=== PATIENT | female | born 1955 | race Native Hawaiian/Other Pacific Islander ===

== ENCOUNTER 2016-11-29 23:58 | Inpatient (IN) | payer OTHER ==
[~2016-11-29] VITALS: Ht 167.6 cm; Wt 53.2 kg
[2016-11-30] MEDS ORDERED: ONDANSETRON HCL/PF 4 MG/2 ML VIAL ONE (00:03)
[2016-11-30] MEDS ORDERED: IV NS 0.9% 1,000 ML ONE (00:03)
[2016-11-30] MEDS ORDERED: IV SET PRIMARY 1 EA INFUS.SET MC ONE (00:03)
[2016-11-30 00:23] LABS: BASOPHILS % (AUTO) 0.2 % (0.0-2.0); EOSINOPHILS # (AUTO) 0.2 /CMM (0.0-0.7); EOSINOPHILS % (AUTO) 2.8 % (0.0-6.0); HEMATOCRIT 34 % (33-45); HEMOGLOBIN 10.8 g/dL (11.5-14.8); LYMPHOCYTES # (AUTO) 1.1 /CMM (0.8-4.8); MEAN CORPUSCULAR HEMOGLOBIN 25 PG (26.0-33.0); MEAN CORPUSCULAR HGB CONC 31 g/dl (31.0-36.0); MEAN CORPUSCULAR VOLUME 79 fL (82-100); MONOCYTES % (AUTO) 0.7 % (2.0-12.0); NEUTROPHILS % (AUTO) 81.3 % (43.0-81.0); PLATELET COUNT (AUTO) 369 /CMM (150-450); RED BLOOD CELL COUNT(AUTO) 4.36 MIL/uL (4.0-5.2); WHITE BLOOD COUNT (AUTO) 7.4 K/uL (4.3-11.0)
[2016-11-30] MEDS ORDERED: HYDROMORPHONE 1 MG/1 ML DISP.SYRIN ONE (00:26)
[2016-11-30] MEDS ORDERED: METOCLOPRAMIDE HCL 10 MG/2 ML VIAL ONE (00:26)
[2016-11-30] MEDS ORDERED: diphenhydrAMINE HCL 50 MG/ML VIAL ONE (00:26)
[2016-11-30] MEDS ORDERED: HYDROMORPHONE 1 MG/1 ML DISP.SYRIN IV ONE (00:30)
[2016-11-30] MEDS ORDERED: IV NS 0.9% 1,000 ML BAG IV ONE (00:30)
[2016-11-30] MEDS ORDERED: METOCLOPRAMIDE HCL 10 MG/2 ML VIAL IV ONE (00:30)
[2016-11-30] MEDS ORDERED: ONDANSETRON HCL/PF 4 MG/2 ML VIAL IVP ONE (00:30)
[2016-11-30] MEDS ORDERED: diphenhydrAMINE HCL 50 MG/ML VIAL IV ONE (00:30)
[2016-11-30 00:35] LABS: CALCIUM, SERUM 9.2 mg/dL (8.5-10.1); POTASSIUM 3.5 mmol/L (3.5-5.1)
[2016-11-30 00:49] LABS: ALBUMIN 3.7 g/dL (3.4-5.0); BILIRUBIN,DIRECT 0.2 mg/dL (0.0-0.2); BILIRUBIN,TOTAL 0.6 mg/dL (0.2-1.0); INDIRECT BILIRUBIN 0.4 mg/dL (0.0-1.1); TOTAL PROTEIN, SERUM 7.6 g/dL (6.4-8.2)
[2016-11-30 01:19] LABS: DIFF TOTAL % 100 %
[2016-11-30] MEDS ORDERED: ONDANSETRON HCL/PF 4 MG/2 ML VIAL IVP PRN (02:00)
[2016-11-30] MEDS ORDERED: ACETAMINOPHEN 325 MG TABLET PO PRN (02:00)
[2016-11-30] MEDS ORDERED: ZOLPIDEM TARTRATE 5 MG TABLET PO PRN (02:00)
[2016-11-30] MEDS ORDERED: IV SET PRIMARY PUMP SET 1 EA INFUS.SET MC ONE (02:02)
[2016-11-30 02:35] VITALS: BP 122/63
[2016-11-30] MEDS: IV NS 0.9% 1,000 ML IV PRN ×2 (02:36→17:05)
[2016-11-30 02:40] VITALS: BP 122/63
[2016-11-30 04:00] VITALS: BP 115/60
[2016-11-30 04:07] LABS: KETONES,URINE 1+ (NEGATIVE); LEUKOCYTE ESTERASE ,URINE 1+ (NEGATIVE); PH,URINE 5.5 (5.0-8.0)
[2016-11-30] MEDS ORDERED: ACETAMINOPHEN 325 MG TABLET ONE (04:27)
[2016-11-30 04:28] LABS: ADD UA MICROSCOPIC YES
[2016-11-30 04:36] LABS: ADD URINE CULTURE YES; RBC,URINE 0-2 /HPF (0-2); WBC,URINE TOO NUMEROUS TO COUN /HPF (0-3)
[2016-11-30 08:00] VITALS: BP 102/53
[2016-11-30] MEDS ORDERED: LORA1TAB82 PO (08:37)
[2016-11-30] MEDS ORDERED: FLUT12AE5 INH (08:37)
[2016-11-30] MEDS ORDERED: FAMO20TA8 PO (08:37)
[2016-11-30] MEDS ORDERED: PANTOPRAZOLE 40 MG TABLET.DR PO SCH (09:00)
[2016-11-30] MEDS: ENOXAPARIN SODIUM 40 MG/0.4 ML DISP.SYRIN SQ SCH (09:19)
[2016-11-30] MEDS: ASPIRIN EC 81 MG TABLET.DR PO SCH (09:19)
[2016-11-30] MEDS: PANTOPRAZOLE 40 MG TABLET.DR PO SCH (09:19)
[2016-11-30 09:52] LABS: THYROID STIMULATING HORMONE 2.426 uIU/mL (0.358-3.74)
[2016-11-30 11:46] LABS: PHOSPHORUS 3.6 mg/dL (2.5-4.9)
[2016-11-30] MEDS ORDERED: SECONDARY IV SET 1 EA INFUS.SET MC ONE (15:57)
[2016-11-30 16:00] VITALS: BP 110/69
[2016-11-30] MEDS: Magnesium 1GM/D5W 100ML PREMIX 100 ML IV SCH ×2 (16:03→17:03)
[2016-11-30 20:00] VITALS: BP 120/66
[2016-11-30] MEDS ORDERED: LORAZEPAM 1 MG TABLET PO PRN (21:00)
[2016-12-01] MEDS: IV NS 0.9% 1,000 ML IV PRN (03:18)
[2016-12-01 07:29] LABS: BASOPHILS % (AUTO) 0.3 % (0.0-2.0); DIFF TOTAL % 100 %; EOSINOPHILS # (AUTO) 0.6 /CMM (0.0-0.7); EOSINOPHILS % (AUTO) 10.6 % (0.0-6.0); HEMATOCRIT 26 % (33-45); LYMPHOCYTES # (AUTO) 1.8 /CMM (0.8-4.8); LYMPHOCYTES % (AUTO) 31.7 % (20.0-44.0); MEAN CORPUSCULAR HEMOGLOBIN 24 PG (26.0-33.0); MEAN CORPUSCULAR HGB CONC 31 g/dl (31.0-36.0); MEAN CORPUSCULAR VOLUME 79 fL (82-100); MONOCYTES # (AUTO) 0.3 /CMM (0.1-1.30); NEUTROPHILS # (AUTO) 2.9 /CMM (1.8-8.9); NEUTROPHILS % (AUTO) 51.4 % (43.0-81.0); PLATELET COUNT (AUTO) 275 /CMM (150-450); RED BLOOD CELL COUNT(AUTO) 3.26 MIL/uL (4.0-5.2); WHITE BLOOD COUNT (AUTO) 5.7 K/uL (4.3-11.0)
[2016-12-01 07:36] LABS: ALANINE AMINOTRANSFERASE 13 U/L (12-78); ALBUMIN 2.5 g/dL (3.4-5.0); ANION GAP 12 (5-14); ASPARTATE AMINOTRANSFERASE 17 U/L (15-37); BILIRUBIN,TOTAL 0.3 mg/dL (0.2-1.0); CALCIUM, SERUM 7.5 mg/dL (8.5-10.1); CARBON DIOXIDE 22 mmol/L (21-32); CHLORIDE 114 mmol/L (98-107); CREATININE 0.7 mg/dL (0.6-1.3); GFR 85 mL/min (>60); GLUCOSE 74 mg/dL (74-106); PHOSPHORUS 2.3 mg/dL (2.5-4.9); POTASSIUM 3.8 mmol/L (3.5-5.1); SODIUM SERUM 144 mmol/L (136-145); TOTAL PROTEIN, SERUM 5.4 g/dL (6.4-8.2); UREA NITROGEN, BLOOD 9 mg/dL (7-18)
[2016-12-01 08:11] LABS: TROPONIN I < 0.017 ng/mL (0.00-0.056)
[2016-12-01] MEDS ORDERED: FLUTICASONE 110MCG 1 EA INHALER IH SCH (09:00)
[2016-12-01] MEDS ORDERED: NEUTRA PHOS 1 POWD.PACKET PO SCH (09:00)
[2016-12-01] MEDS: ASPIRIN EC 81 MG TABLET.DR PO SCH (10:13)
[2016-12-01] MEDS: PANTOPRAZOLE 40 MG TABLET.DR PO SCH (10:13)
[2016-12-01] MEDS: ENOXAPARIN SODIUM 40 MG/0.4 ML DISP.SYRIN SQ SCH (10:23)
[2016-12-01] MEDS ORDERED: SECONDARY IV SET 1 EA INFUS.SET MC ONE (12:47)
[2016-12-01] MEDS ORDERED: SOD FERRIC GLUC 125 MG in IV NS 0.9% 100 ML IV SCH (14:00)
[2016-12-01 16:34] LABS: CHOLESTEROL 112 mg/dL (<200); HDL CHOLESTEROL 61 mg/dL (40-60); LDL 45 mg/dL (0-99); THYROID STIMULATING HORMONE 0.483 uIU/mL (0.358-3.74); TRIGLYCERIDES 85 mg/dL (30-150)
== END 2016-12-01 14:44 | disposition home or self-care (01) | DRG 203 ==
LOC: ER 11-30 → TELE 11-30 01:46 → MED 11-30 09:20
PROVIDERS: ADMIT Nurse Practitioner Acute Care; ATTEND Nurse Practitioner Acute Care
DX: M94.0 Chondrocostal junction syndrome [Tietze] (principal); R55 Syncope and collapse; D50.9 Iron deficiency anemia, unspecified; F41.9 Anxiety disorder, unspecified; Z90.49 Acquired absence of other specified parts of digestive tract; Z85.038 Personal history of other malignant neoplasm of large intestine; R25.2 Cramp and spasm; J45.909 Unspecified asthma, uncomplicated
CPT/HCPCS: 36415; 71010-TC; 76700-TC; 80048-TC; 80053-TC; 80061-TC; 80076-TC; 81000-TC; 82306; 82728-TC; 83540-TC; 83690-TC; 83735-TC; 84100-TC; 84439-TC; 84443-TC; 84484-TC; 85025-TC; 85652-TC; 87081-TC; 87086-TC; 87186-TC; 93307-TC; 97001-TC; 97003-TC; A4606; J1170; J1200; J1650; J2405; J2765; J2916; J3475; J7030; Z7610